=== PATIENT | male | born 1990 | race Caucasian/White ===

== ENCOUNTER 2018-08-25 21:12 | Emergency (ER) | payer SELFPAY ==
[~2018-08-25] VITALS: Ht 180.3 cm; Wt 88.5 kg
[2018-08-25 21:17] VITALS: BP 144/82; PULSE 88; RESP 16; Ht 180.3 cm; Wt 88.5 kg
== END 2018-08-26 02:29 | disposition left against medical advice (07) ==
LOC: FTE 21:12
DX: Z53.21 Procedure and treatment not carried out due to patient leaving prior to being seen by health care provider (principal)